=== PATIENT | male | born 1955 ===

== ENCOUNTER 2017-05-13 11:56 | Day surgery (SDC) | payer OTHER ==
[2017-05-11 11:49] VITALS: BMI 29.7
[2017-05-13] MEDS ORDERED: Propofol 10 mg/ml Inj (20 ML) ONE (13:15)
[2017-05-13] MEDS ORDERED: Sodium Chloride 0.9% 1,000 ML IV SCH (14:00)
[2017-05-13 14:27] VITALS: PULSE 61
[2017-05-13 14:45] VITALS: BP 116/70; RESP 16; TEMP 98; O2SAT 98
== END 2017-05-13 15:03 | disposition home or self-care (01) ==
LOC: ENDO 11:56
PROVIDERS: ATTEND Internal Medicine Gastroenterology
DX: Z12.11 Encounter for screening for malignant neoplasm of colon (principal); K64.8 Other hemorrhoids